=== PATIENT | female | born 2000 | race American Indian/Alaskan Native ===

== ENCOUNTER 2021-01-11 23:49 | Emergency (ER) | payer MEDICAID ==
[2021-01-11 23:57] VITALS: BP 114/62
--- NOTE | 2021-01-12 00:17 | Emergency Department Report ---
Upper Extremity - HPI Chief Complaint: Extremity Injury, Upper Stated Complaint: RT WRIST INJURY Time Seen by Provider: 01/12/21 00:12 Upper Extremity: Right Wrist Occurred When: 2 Days Mechanism: Fall Severity: moderate Symptoms: Yes Pain with Movement, Yes Limited Range of Movement, Yes Swelling, No Deformity, No Numbness, No Weakness, No Bruising/Ecchymosis, No Laceration or Abrasion Other History: She fell while riding skateboard 2 days ago now with pain and swelling to right wrist. pain is described as 5/10 exacerbated by movement and palpation. There is no numbness or tingling or obvious deformity , no abrasion laceration or bleeding. ED Review of Systems ROS: Stated complaint: RT WRIST INJURY Other details as noted in HPI Constitutional: denies: chills, fever Eyes: denies: eye pain, eye discharge, vision change ENT: denies: ear pain, throat pain Respiratory: denies: cough, shortness of breath, wheezing Cardiovascular: denies: chest pain, palpitations Endocrine: no symptoms reported Gastrointestinal: denies: abdominal pain, nausea, diarrhea Genitourinary: denies: urgency, dysuria, discharge Musculoskeletal: joint swelling (right wrist ) Skin: as per HPI Neurological: denies: headache, weakness, paresthesias Psychiatric: as per HPI Hematological/Lymphatic: denies: easy bleeding, easy bruising ED Past Medical Hx - Past Medical History Previous Medical History?: No - Surgical History Past Surgical History?: No - Social History Smoking Status: Never Smoker - Medications Home Medications: Home Medications Medication Instructions Recorded Confirmed Last Taken Type Cyclobenzaprine [Flexeril] 10 mg PO BID PRN 5 Days #10 tablet 01/12/21 Unknown Rx Menthol/Camphor [Morrison Stowe 1 applicatio TP Q6H PRN #1 tube 01/12/21 Unknown Rx Ointment] RX: Naproxen [Naprosyn TAB] 500 mg PO BID PRN #30 tablet 01/12/21 Unknown Rx Upper Extremity Exam - Exam General: Vital signs noted. No distress. Alert and acting appropriately. Head and Torso: No HEENT Abnormality, No Neck Tenderness, No Chest/Lungs Abnormality, No Abdominal Tenderness, No Back Tenderness Shoulder Exam: Yes Normal Range of Motion in Shoulder, No Shoulder Tenderness, No Clavicle Tenderness, No Shoulder Deformity, No AC Joint Tenderness Arm Exam: No Arm/Humerus Tenderness, No Arm Deformity Elbow: No Elbow Tenderness, No Normal Range of Motion in Elbow, No Elbow Deformity Forearm: No Forearm Tenderness, No Forearm Deformity, No Pain with Pronation, No Pain with Supination Wrist: Yes Wrist Tenderness, Yes Normal ROM in Wrist, No Wrist Deformity, No Snuffbox Tenderness, No Pain with Axial Thumb Compression Hand: Yes Hand Tenderness, Yes Normal ROM in Digit(s), No Hand Deformity, No Digit Tenderness, No Digit(s) Deformity, No Tendon Dysfunction CMS Exam: Yes Normal Distal Pulses, Yes Normal Capillary Refill, Yes Normal Distal Sensation, No Broken Skin ED Course Vital Signs 01/11/21 23:52 Temperature 98.2 F Pulse Rate 87 Respiratory 16 Rate Blood Pressure 114/62 O2 Sat by Pulse 100 Oximetry ED Medical Decision Making - Radiology Data Radiology results: report reviewed, image reviewed INDICATION / CLINICAL INFORMATION: skateboarding accident COMPARISON: None available. FINDINGS: BONES / JOINT(S): No acute fracture or subluxation. No significant arthritis. SOFT TISSUES: No significant abnormality. ADDITIONAL FINDINGS: None. Signer Name: Joseph Vasquez MD Signed: 01/12/2021 12:39 AM Workstation Name: [id number] Transcribed By: SS Dictated By: Joseph Vasquez MD Electronically Authenticated By: Joseph Vasquez MD Signed Date/Time: 01/12/2138 DD/ TD/TT: - Medical Decision Making Xray There is no fracture., No soft tissue abnormality range of motion is intact distal pulses intact [employer]IVE less than 3 palate, plan treat for wrist sprain , Velcro wrist splint NSAIDs as needed rice therapy as discussed wrist exercises follow-up with orthopedics if not improved in 2 to 3 days. Patient verbalized agreement understanding discharge plan. Patient DC'd home in stable condition at this time. Critical care attestation.: If time is entered above; I have spent that time in minutes in the direct care of this critically ill patient, excluding procedure time. ED Disposition Clinical Impression: Right wrist sprain Qualifiers: Encounter type: initial encounter Qualified Code(s): S63.501A - Unspecified sprain of right wrist, initial encounter Disposition: DC-01 TO HOME OR SELFCARE Is pt being admited?: No Does the pt Need Aspirin: No Condition: Stable Instructions: Wrist Sprain, Adult, Wrist Sprain Rehab-SportsMed, How to Use Cold Therapy Prescriptions: Cyclobenzaprine [Flexeril] 10 mg PO BID PRN 5 Days #10 tablet PRN Reason: Muscle Spasm RX: Naproxen [Naprosyn TAB] 500 mg PO BID PRN #30 tablet PRN Reason: pain Menthol/Camphor [Morrison Stowe Ointment] 1 applicatio TP Q6H PRN #1 tube PRN Reason: pain Referrals: NASIR MOSS MD [Staff Physician] - 3-5 Days Forms: Work/School Release Form(ED) Time of Disposition: 01:09
--- NOTE | 2021-01-12 00:44 | XRay Report ---
RIGHT WRIST 4 VIEWS INDICATION / CLINICAL INFORMATION: skateboarding accident COMPARISON: None available. FINDINGS: BONES / JOINT(S): No acute fracture or subluxation. No significant arthritis. SOFT TISSUES: No significant abnormality. ADDITIONAL FINDINGS: None. Signer Name: Joseph Vasquez MD Signed: 01/12/2021 12:39 AM Workstation Name: [id number]
== END 2021-01-12 02:00 | disposition home or self-care (01) ==
LOC: ED 23:49
DX: S63.501A Unspecified sprain of right wrist, initial encounter (principal); Z79.899 Other long term (current) drug therapy; V00.131A Fall from skateboard, initial encounter; Y93.89 Activity, other specified; Y92.89 Other specified places as the place of occurrence of the external cause; Y99.8 Other external cause status
CPT/HCPCS: 99283